=== PATIENT | female | born 1970 | race African-American/Black ===

== ENCOUNTER → 2018-07-22 | Day surgery (SDC) | payer OTHER ==
[~2018-07-22] MED LIST: AMLO2.5T5 PO; AZIT1PAC9 PO; IV RINGERS,LACTATED 1000ML 1,000 ML IV SCH; LIDOCAINE 1% PF 2 ML VIAL. ID PRN; LIDOCAINE 1% PF 2 ML VIAL. ONE; LISI10TA2 PO; MIDAZOLAM HCL/PF 2 MG/2 ML VIAL. IV PRN; PRED50TA PO; PROPOFOL 20 ML IV ONE; fentaNYL PF VIAL 100 MCG/2 ML VIAL IV PRN
[2018-07-22 11:00] VITALS: BP 124/83
== END | disposition home or self-care (01) ==
LOC: SURG 08:34
PROVIDERS: ATTEND Internal Medicine Gastroenterology
DX: K59.00 Constipation, unspecified (principal); K64.0 First degree hemorrhoids; I10 Essential (primary) hypertension; Z82.49 Family history of ischemic heart disease and other diseases of the circulatory system; Z83.3 Family history of diabetes mellitus; Z79.899 Other long term (current) drug therapy
CPT/HCPCS: 45378; J2704

== ENCOUNTER 2018-08-23 15:25 | Emergency (ER) | payer OTHER ==
[~2018-08-23] VITALS: Ht 177.8 cm; Wt 136.1 kg
[~2018-08-23 15:25] MED LIST changes: -AZIT1PAC9 PO; -IV RINGERS,LACTATED 1000ML 1,000 ML IV SCH; -LIDOCAINE 1% PF 2 ML VIAL. ID PRN; -LIDOCAINE 1% PF 2 ML VIAL. ONE; -MIDAZOLAM HCL/PF 2 MG/2 ML VIAL. IV PRN; -PRED50TA PO; -PROPOFOL 20 ML IV ONE; -fentaNYL PF VIAL 100 MCG/2 ML VIAL IV PRN
--- NOTE | 2018-08-23 16:05 | PHYS DOC ---
Adult General Chief Complaint Chief Complaint: FLANK PAIN HPI HPI 47-year-old female presents to ER with complaints of right side rib pain just below her axillary. Patient denies any recent injury or falls. Patient reports it hurts when she takes a deep breath any fever or chills, cough, or swelling in extremities. She denies any recent flulike illness. She reports she took aspirin 325 mg last night but denies taking any [id number] medications for pain today. Patient denies any chest pain or palpitations. Patient states she does not have increased shortness of air when walking and shortness of air occurs when she is trying to take a deep breath. She denies any swelling in extremities. She denies urinary symptoms. She reports she did have colonoscopy in July but states she has had no issues since having the scope done. Patient denies any recent travel, hormonal therapy, or previous history of blood clots in legs or lungs. Review of Systems Review of Systems Constitutional: Denies fever or chills [] Eyes: Denies change in visual acuity, redness, or eye pain [] HENT: Denies nasal congestion or sore throat [] Respiratory: Denies cough. Reports pain with deep breath and palp. of rt side rib area just below axillary Cardiovascular: Denies CP GI: Denies abdominal pain, nausea, vomiting, bloody stools or diarrhea [] : Denies dysuria or hematuria [] Musculoskeletal: Denies back/neck pain or joint pain [] Integument: Denies rash, swelling or skin lesions [] Neurologic: Denies headache, focal weakness or sensory changes [] All other systems were reviewed and found to be within normal limits, except as documented in this note. Current Medications Current Medications Current Medications Medications (Trade) Dose Ordered Sig/Rose Start Time Stop Time Status Last Admin Dose Admin Acetaminophen/ Hydrocodone Bitart (Lortab 5/325) 1 tab 1X ONCE 08/23/18 18:15 08/23/18 18:16 DC 08/23/18 18:15 1 TAB Fentanyl Citrate (Fentanyl 2ml Vial) 25 mcg 1X ONCE 08/23/18 16:30 08/23/18 16:31 DC 08/23/18 16:52 25 MCG Lidocaine (Lidoderm) 1 patch STK-MED ONCE 08/23/18 16:59 08/23/18 17:00 DC Prednisone (Prednisone) 50 mg 1X ONCE 08/23/18 16:30 08/23/18 16:31 DC 08/23/18 16:52 50 MG Allergies Allergies Allergies Coded Allergies Type Severity Reaction Last Updated Verified No Known Drug Allergies 07/22/18 No Physical Exam Physical Exam Constitutional: Well developed, well nourished, mild distress- tearful, non- toxic appearance. [] HENT: Normocephalic, atraumatic, bilateral ears normal, mucous membranes pink/ dry, no oral exudates, nose normal. [] Eyes: Pupils equal, conjunctiva normal, no discharge. [] Neck: Normal range of motion, no tenderness/crepitus, supple, no stridor. Trachea midline Cardiovascular: Heart rate regular rhythm, no murmur [] Lungs & Thorax: Bilateral breath sounds clear to auscultation- pt is not taking deep breaths during exam as she reports pain increases with breathing. Clear lung sounds are heard in bilat. upper lung figueroa with less air movement in bases. Abdomen: Bowel sounds normal, soft, no tenderness, no masses, no pulsatile masses. [] Skin: Warm, dry, no erythema, no rash. [] Back: No tenderness, no CVA tenderness. [] Extremities: No tenderness, no cyanosis, no clubbing, ROM intact, no edema. [] Neurologic: Alert and oriented X 3, normal motor function, normal sensory function, no focal deficits noted. [] Psychologic: Affect normal, judgement normal, mood normal. [] Current Patient Data Vital Signs Vital Signs Date Time Temp Pulse Resp B/P (MAP) Pulse Ox O2 Delivery O2 Flow Rate FiO2 08/23/18 18:15 16 100 Room Air 08/23/18 17:52 74 118/74 (89) 08/23/18 15:56 98.1 98.1 Lab Values Laboratory Tests Test 08/23/18 16:25 White Blood Count 6.4 x10^3/uL (4.0-11.0) Red Blood Count 4.47 x10^6/uL (3.50-5.40) Hemoglobin 10.7 g/dL (12.0-15.5) L Hematocrit 33.7 % (36.0-47.0) L Mean Corpuscular Volume 76 fL (79-100) L Mean Corpuscular Hemoglobin 24 pg (25-35) L Mean Corpuscular Hemoglobin Concent 32 g/dL (31-37) Red Cell Distribution Width 15.9 % (11.5-14.5) H Platelet Count 445 x10^3/uL (140-400) H Neutrophils (%) (Auto) 61 % (31-73) Lymphocytes (%) (Auto) 26 % (24-48) Monocytes (%) (Auto) 10 % (0-9) H Eosinophils (%) (Auto) 2 % (0-3) Basophils (%) (Auto) 1 % (0-3) Neutrophils # (Auto) 3.9 x10^3uL (1.8-7.7) Lymphocytes # (Auto) 1.7 x10^3/uL (1.0-4.8) Monocytes # (Auto) 0.6 x10^3/uL (0.0-1.1) Eosinophils # (Auto) 0.1 x10^3/uL (0.0-0.7) Basophils # (Auto) 0.1 x10^3/uL (0.0-0.2) D-Dimer (Lora) 0.49 ug/mlFEU (0.00-0.50) Sodium Level 138 mmol/L (136-145) Potassium Level 4.0 mmol/L (3.5-5.1) Chloride Level 101 mmol/L (98-107) Carbon Dioxide Level 26 mmol/L (21-32) Anion Gap 11 (6-14) Blood Urea Nitrogen 11 mg/dL (7-20) Creatinine 0.9 mg/dL (0.6-1.0) Estimated GFR (Cockcroft-Gault) 81.9 BUN/Creatinine Ratio 12 (6-20) Glucose Level 95 mg/dL (70-99) Calcium Level 9.1 mg/dL (8.5-10.1) Magnesium Level 2.2 mg/dL (1.8-2.4) Total Bilirubin 0.2 mg/dL (0.2-1.0) Aspartate Amino Transferase (AST) 16 U/L (15-37) Alanine Aminotransferase (ALT) 16 U/L (14-59) Alkaline Phosphatase 84 U/L (46-116) Troponin I Quantitative < 0.017 ng/mL (0.000-0.055) Total Protein 8.7 g/dL (6.4-8.2) H Albumin 3.2 g/dL (3.4-5.0) L Albumin/Globulin Ratio 0.6 (1.0-1.7) L Laboratory Tests 08/23/18 16:25 Laboratory Tests 08/23/18 16:25 EKG EKG EKG obtained 08/23/18 at [address] Barakat Sinus rhythm Ltward axis Rate 83 No STEMI Radiology/Procedures Radiology/Procedures PROCEDURE: CHEST PA & LATERAL Two-view chest dated 08/23/2018. Comparison made to 09/14/2008. CLINICAL INDICATION: Right-sided flank pain for 2 days. FINDINGS: 2 views chest show stable heart and mediastinal contours. Mild patchy increased density at both lung bases. No consolidation or pleural effusion. No pneumothorax. IMPRESSION: Mild patchy bibasilar opacities, atelectasis versus early pneumonia. Electronically signed by: Navdeep Marcos MD (08/23/2018 4:50 PM) [id number] DICTATED and SIGNED BY: NAVDEEP MARCOS MD DATE: 08/23/18 1650 Course & Med Decision Making Course & Med Decision Making Pertinent Labs and Imaging studies reviewed. (See chart for details) 1725: Discussed test results with patient regarding test results and chest x- ray showing possible pneumonia developing. Patient reports her symptoms have improved since treatments were received while in the ER. At this time she is resting on the cart in no visible distress with equal nonlabored respirations. On reexamination patient is able to take deep breaths without complaints of increased right side/pain with clear bilateral lung sounds in all lung figueroa. EKG with no acute ST elevation or STEMI and troponin was <0.017; d-dimer was 0.49 and patient was PERC neg. H&H was down at 10.7/33.7 she reports hx of anemia and hasn't been taking supplements- discussed her starting iron supplements and f/u with PCP for recheck of CBC. O2 sat. remains 100% on RA. Will provide patient with prescription for prednisone for 4 additional day treatment with initial dose given in the ER. Will provide patient with antibiotics for possible developing pneumonia. Patient was advised on follow-up with her primary care physician in 3-5 days for reevaluation or sooner with any concerns. Will provide Rx for Lidoderm patches with education on use with pt. Education provided on signs and symptoms to return to ER. Discharge instructions were discussed. Patient to follow-up with primary care physician if symptoms persist or with any concerns. RN reported at time of discharge patient was requesting a pain pill prior to being discharged. Will provide patient with one dose of [place] as she was advised on use of Tylenol and/or ibuprofen at home for pain control as well as prescribed prednisone and Lidoderm patches. Dragon Disclaimer Dragon Disclaimer This electronic medical record was generated, in whole or in part, using a voice recognition dictation system. Departure Departure Impression: Primary Impression: Musculoskeletal pain Additional Impression: Pneumonia Disposition: HOME, SELF-CARE Condition: STABLE Referrals: SUKH GIVENS MD (PCP) Patient Instructions: Musculoskeletal Pain, Pneumonia, Adult Additional Instructions: Tylenol and/or ibuprofen as needed for pain as directed on container. You can apply ice or heat compress to affected area every 3-4 hours for 20-30 minutes at a time. Follow-up with primary care physician in 3-5 days for reevaluation or sooner with any concerns. Scripts Azithromycin (AZITHROMYCIN PACKET) 1 Gm Packet 1 PACKET PO ONCE, #1 PACKET 0 Refills Prov: CHAYA HANNA APRN 08/23/18 Prednisone (PREDNISONE) 50 Mg Tablet 1 TAB PO DAILY, #4 TAB 0 Refills Start on 08/24/18 Prov: CHAYA HANNA APRN 08/23/18 Problem Qualifiers CHAYA HANNA APRN Aug 23, 2018 16:05
--- NOTE | 2018-08-23 16:29 | EKG ---
[facility] [address] [place] [address] Test Date: 2018-08-23 Test Time: 16:20:44 Pat Name: NAILA STEPHENS Department: Room: Gender: F Electrical Service Technician: : 1970 Requested By: CHAYA HANNA Order Number: [id number] Reading MD: Elvin Galeano MD Measurements Intervals [place] Rate: 83 P: 42 MA: 138 QRS: -17 QRSD: 92 T: 16 QT: 374 QTc: 445 Interpretive Statements SINUS RHYTHM Electronically Signed On 09-01-2018 9:30:38 CDT by Elvin Galeano MD
[2018-08-23] MEDS ORDERED: predniSONE 10 MG TABLET PO ONE (16:30)
[2018-08-23] MEDS ORDERED: fentaNYL PF VIAL 100 MCG/2 ML VIAL IV ONE (16:30)
[2018-08-23 16:34] LABS: BASO # 0.1 x10^3/uL (0.0-0.2); BASO % 1 % (0-3); EOS # 0.1 x10^3/uL (0.0-0.7); EOS % 2 % (0-3); HEMATOCRIT 33.7 % (36.0-47.0); HEMOGLOBIN 10.7 g/dL (12.0-15.5); LYMPH # 1.7 x10^3/uL (1.0-4.8); LYMPH % 26 % (24-48); MEAN CORPUSCULAR HEMOGLOBIN 24 pg (25-35); MEAN CORPUSCULAR HGB CONC 32 g/dL (31-37); MEAN CORPUSCULAR VOLUME 76 fL (79-100); MONO # 0.6 x10^3/uL (0.0-1.1); MONO % 10 % (0-9); NEUT # 3.9 x10^3uL (1.8-7.7); NEUT % 61 % (31-73); PLATELET COUNT 445 x10^3/uL (140-400); RED BLOOD COUNT 4.47 x10^6/uL (3.50-5.40); RED CELL DISTRIBUTION WIDTH 15.9 % (11.5-14.5); WHITE BLOOD COUNT 6.4 x10^3/uL (4.0-11.0)
--- NOTE | 2018-08-23 16:53 | RAD ---
Two-view chest dated 08/23/2018. Comparison made to 09/14/2008. CLINICAL INDICATION: Right-sided flank pain for 2 days. FINDINGS: 2 views chest show stable heart and mediastinal contours. Mild patchy increased density at both lung bases. No consolidation or pleural effusion. No pneumothorax. IMPRESSION: Mild patchy bibasilar opacities, atelectasis versus early pneumonia. Electronically signed by: Navdeep Marcos MD (08/23/2018 4:50 PM) [facility]
[2018-08-23] MEDS ORDERED: LIDOCAINE (700MG/PATCH) PATCH. ONE (16:59)
[2018-08-23 17:00] LABS: CALCIUM 9.1 mg/dL (8.5-10.1); CREATININE 0.9 mg/dL (0.6-1.0); GFR 81.9
[2018-08-23] MEDS ORDERED: LIDOCAINE (700MG/PATCH) PATCH. TD SCH (17:01)
[2018-08-23 17:06] LABS: ALBUMIN 3.2 g/dL (3.4-5.0); ALBUMIN/GLOBULIN RATIO 0.6 (1.0-1.7); TOTAL BILIRUBIN 0.2 mg/dL (0.2-1.0); TOTAL PROTEIN 8.7 g/dL (6.4-8.2)
[2018-08-23] MEDS ORDERED: AZIT1PAC9 PO (17:51)
[2018-08-23] MEDS ORDERED: PRED50TA PO (17:51)
[2018-08-23 17:52] VITALS: BP 118/74
[2018-08-23] MEDS ORDERED: HYDROcodone/APAP 5/325MG 1 TAB TABLET PO ONE (18:15)
== END 2018-08-23 18:18 | disposition home or self-care (01) ==
LOC: ER 15:25
DX: J18.9 Pneumonia, unspecified organism (principal); R07.81 Pleurodynia
CPT/HCPCS: 36415; 71046; 80053; 83735; 84484; 85025; 85379; 93005; 96374; 99284; J3010; J7512

== ENCOUNTER → 2018-09-08 | Outpatient (CLI) | payer OTHER ==
[2018-08-23 17:52] VITALS: BP 118/74
[~2018-09-08] MED LIST changes: +AZIT1PAC9 PO; +PRED50TA PO
--- NOTE | 2018-09-08 12:21 | KCIC ---
EXAM: Abdomen sonogram. HISTORY: Right upper quadrant pain. TECHNIQUE: Sonographic imaging of the abdomen was performed. COMPARISON: None. FINDINGS: The exam is limited due to body habitus and bowel gas. The liver is normal in size. There is suspected slight hepatic steatosis. No focal hepatic lesion is seen. The common bile duct is normal in caliber. The gallbladder is unremarkable. The right kidney is partially obscured. The visualized portions of the right kidney are unremarkable. The pancreas is obscured due to bowel gas. The inferior vena cava is patent. The aorta is not assessed. IMPRESSION: 1. Limited exam due to body habitus and bowel gas. 2. Suspected slight hepatic steatosis. 3. Obscured pancreas and partially obscured right kidney due to aforementioned study limitations. Electronically signed by: Adriana Segovia MD (09/08/2018 12:18 PM) [id number]
== END | disposition home or self-care (01) ==
LOC: KCIC US 08:58
PROVIDERS: ATTEND Family Medicine
DX: R10.11 Right upper quadrant pain (principal)
CPT/HCPCS: 76705